=== PATIENT | female | born 1985 | race Caucasian/White ===

== ENCOUNTER → 2017-01-27 | Outpatient (CLI) | payer BC ==
[2017-01-27 08:39] LABS: CHLORIDE,CL 99 mmol/L (98-110); SODIUM,NA 134 mmol/L (136-146)
== END ==
LOC: MW.CHFP 08:01
PROVIDERS: ATTEND Nurse Practitioner Family
DX: Z00.00 Encounter for general adult medical examination without abnormal findings (principal); E11.9 Type 2 diabetes mellitus without complications; R63.1 Polydipsia
CPT/HCPCS: 36415; 80053; 80061; 81001; 82044; 83036; 84443

== ENCOUNTER → 2017-01-28 | Outpatient (CLI) | payer BC ==
[2017-02-13 17:04] LABS: HPV 16 Detected (NOTDET); HPV 18 Not Detected (NOTDET)
== END ==
LOC: MW.CHOBGYN 08:31
PROVIDERS: ATTEND Nurse Practitioner Women's Health
DX: O24.419 Gestational diabetes mellitus in pregnancy, unspecified control (principal); N89.8 Other specified noninflammatory disorders of vagina
CPT/HCPCS: 36415; 84681; 87480; 87510; 87624; 87660; G0145

== ENCOUNTER → 2017-02-04 | Outpatient (CLI) | payer BC ==
--- NOTE | 2017-02-05 14:18 | US ---
EXAM DATE: 02/04/17 PATIENT'S AGE: 31 Patient: AUBREE WILSON Facility: [facility] Site . Site : 1985 Study: US-Head [id number] 10:27:26 AM Ordering Physician: Kassandra Tirado Final Report: INDICATION: Family history of Graves disease. TECHNIQUE: Ultrasound thyroid with mendoza-scale and color Doppler analysis. COMPARISON: None FINDINGS: Right lobe: 4.2 x 1.7 x 1.0 cm. Left lobe: 3.2 x 1.6 x 1.6 cm. Nodules: None. Suspicious calcifications: None. Echotexture of the thyroid parenchyma is normal. Color Doppler analysis demonstrates normal vascularity. The isthmus is normal. No evidence of lymphadenopathy or parathyroid mass. IMPRESSION: Normal thyroid ultrasound. Dictated by Gerardo Hylton MD @ Feb 05 2017 10:41AM Signed by: Gerardo Hylton MD @02/05/2017 10:42:45 AM (Electronic Signature) Report Signed by Proxy and Original Signed Document filed in the Medical Record. [facility]
== END ==
LOC: MW.US 09:33
PROVIDERS: ATTEND Nurse Practitioner Family
DX: E07.89 Other specified disorders of thyroid (principal)
CPT/HCPCS: 76536-26; 76536-50

== ENCOUNTER 2022-05-29 13:26 | Emergency (ER) | payer BC ==
[2022-05-29] MEDS ORDERED: Sodium Chloride 0.9% 10 ML Syringe FLUSH PRN (13:29)
[2022-05-29] MEDS ORDERED: Sodium Chloride 0.9% 2.5 ML Syringe FLUSH PRN (13:29)
[2022-05-29] MEDS ORDERED: Sodium Chloride 0.9% 1,000 ML IV ONE (13:54)
[2022-05-29 14:23] LABS: CARBON DIOXIDE,CO2 27.7 mmol/L (21.0-32.0); POTASSIUM,K 4.3 mmol/L (3.5-5.1)
== END 2022-05-29 16:41 | disposition home or self-care (01) ==
LOC: MW.ED 13:26
DX: R10.13 Epigastric pain (principal); E78.00 Pure hypercholesterolemia, unspecified; I10 Essential (primary) hypertension; K21.9 Gastro-esophageal reflux disease without esophagitis; E10.9 Type 1 diabetes mellitus without complications; Z88.0 Allergy status to penicillin; Z88.2 Allergy status to sulfonamides; Z88.1 Allergy status to other antibiotic agents; Z79.82 Long term (current) use of aspirin; Z79.4 Long term (current) use of insulin; Z79.899 Other long term (current) drug therapy
CPT/HCPCS: 36415; 76830; 80053; 81001; 81025; 83690; 85025; 96360; 99284; J3490; J7030

== ENCOUNTER 2022-07-19 14:12 | Emergency (ER) | payer BC ==
[2022-07-19] MEDS ORDERED: Sodium Chloride 0.9% 1,000 ML IV ONE (15:25)
[2022-07-19] MEDS ORDERED: Morphine 4 MG/ML VIAL IVPUSH ONE (15:28)
[2022-07-19] MEDS ORDERED: Ondansetron 4 MG/2 ML SDV IVPUSH ONE ×2 (15:28→18:04)
[2022-07-19 16:06] LABS: BLOOD UREA NITROGEN,BUN 17 mg/dL (7.0-18.0); CARBON DIOXIDE,CO2 31.3 mmol/L (21.0-32.0); CHLORIDE,CL 104 mmol/L (98-107); GLUCOSE RANDOM 61 mg/dL (74-106); POTASSIUM,K 3.6 mmol/L (3.5-5.1); SODIUM,NA 142 mmol/L (136-145)
[2022-07-19 16:07] LABS: ESTIMATED GFR 75 mL/min (>60)
[2022-07-19] MEDS ORDERED: Alum Hydro/Mag Hydro/Simeth XS 15 ML, Metoclopramide 5 MG, Lidocaine 2% 5 ML PO ONE ×3 (16:27)
[2022-07-19] MEDS ORDERED: Famotidine 20 MG/2 ML SDV IVPUSH ONE (17:29)
[2022-07-19] MEDS ORDERED: HYDROmorphone 1 MG/ML Syringe IVPUSH ONE (17:29)
[2022-07-19] MEDS ORDERED: Iopamidol 755 MG/ML 500 ML Multipack Bottle IVPUSH STA (18:06)
== END 2022-07-19 19:54 | disposition home or self-care (01) ==
LOC: MW.ED 14:12
DX: K42.9 Umbilical hernia without obstruction or gangrene (principal); Z88.0 Allergy status to penicillin; Z88.2 Allergy status to sulfonamides; Z88.1 Allergy status to other antibiotic agents; Z79.899 Other long term (current) drug therapy; Z20.822 Contact with and (suspected) exposure to COVID-19
CPT/HCPCS: 36415; 74177; 80053; 81003; 81025; 82947; 83690; 85025; 87635; 96361; 96374; 96375; 96376; 99284; A9270; J1170; J2270; J2405; J3490; J7030; Q9967; U0002

== ENCOUNTER 2022-11-26 07:55 | Day surgery (SDC) | payer BC ==
[~2022-11-26 07:55] MED LIST: Acetaminophen 1,000 MG in Premix Bag 1 BAG IV SCH; Bupivacaine 0.5% 30 ML SDV ONE; Lactated Ringers 1,000 ML IV SCH; Pregabalin 75 MG Cap PO SCH; ceFAZolin 2 GM in Premix Bag 1 BAG IV SCH
[2022-11-26] MEDS ORDERED: fentaNYL 50 MCG/ML SDV IVPUSH PRN (08:54)
[2022-11-26] MEDS ORDERED: Metoclopramide 10 MG/2 ML SDV IVPUSH PRN (08:54)
[2022-11-26] MEDS ORDERED: Naloxone 0.4 MG/ML SDV IVPUSH PRN (08:54)
[2022-11-26] MEDS ORDERED: Albuterol 0.083% 2.5 MG/3 ML Neb Soln NEB PRN (08:54)
[2022-11-26] MEDS ORDERED: Ondansetron 4 MG/2 ML SDV IVPUSH PRN (08:54)
[2022-11-26] MEDS ORDERED: Morphine 2 MG/ML SYRINGE IVPUSH PRN (08:54)
[2022-11-26] MEDS ORDERED: HYDROmorphone 1 MG/ML Syringe IVPUSH PRN (08:54)
[2022-11-26] MEDS ORDERED: Ropivacaine 0.5% 5 MG/ML 30 ML SDV ONE (08:57)
[2022-11-26] MEDS ORDERED: Propofol 200 MG/20 ML SDV ONE (09:00)
[2022-11-26] MEDS ORDERED: Midazolam 1 MG/ML 2 ML SDV ONE (09:00)
[2022-11-26] MEDS ORDERED: Lidocaine 2% 5 ML SDV ONE (09:00)
[2022-11-26] MEDS ORDERED: Dexamethasone 4 MG/ML 5 ML MDV ONE (09:00)
[2022-11-26] MEDS ORDERED: fentaNYL 100 MCG/2 ML SDV ONE (09:00)
[2022-11-26] MEDS ORDERED: Ondansetron 4 MG/2 ML SDV ONE (09:00)
[2022-11-26] MEDS ORDERED: ceFAZolin 2 GM Vial ONE (09:16)
[2022-11-26] MEDS ORDERED: Water For Injection, Sterile 20 ML ONE (09:16)
[2022-11-26] MEDS ORDERED: Magnesium Sulfate (4.06 MEQ/ML) 5 GM/10 ML SDV ONE (10:06)
[2022-11-26] MEDS ORDERED: Ketorolac 30 MG/ML SDV ONE (10:08)
[2022-11-26] MEDS ORDERED: HYDROmorphone 2 MG/ML Syringe ONE (10:52)
[2022-11-26] MEDS ORDERED: Ondansetron 4 MG Tab.DIS ONE (14:42)
[2022-11-26] MEDS ORDERED: Famotidine 20 MG/2 ML SDV ONE (14:56)
[2022-11-26] MEDS ORDERED: Famotidine 20 MG/2 ML SDV IVPUSH ONE (15:04)
== END 2022-11-26 15:30 | disposition home or self-care (01) ==
LOC: MW.SDS 07:55
PROVIDERS: ATTEND Surgery
DX: K42.0 Umbilical hernia with obstruction, without gangrene (principal); I10 Essential (primary) hypertension; F31.81 Bipolar II disorder; E10.9 Type 1 diabetes mellitus without complications; K21.9 Gastro-esophageal reflux disease without esophagitis; E78.00 Pure hypercholesterolemia, unspecified; J45.909 Unspecified asthma, uncomplicated; F41.9 Anxiety disorder, unspecified; G43.909 Migraine, unspecified, not intractable, without status migrainosus; Z88.0 Allergy status to penicillin; Z88.2 Allergy status to sulfonamides; Z79.899 Other long term (current) drug therapy; Z98.890 Other specified postprocedural states; Z79.4 Long term (current) use of insulin
CPT/HCPCS: 49587; 81025; A9270; J0690; J1100; J1170; J1885; J2250; J2405; J2704; J2765; J2795; J3010; J3475; J3490; J7120; 00750; 64488

== ENCOUNTER 2024-01-07 11:45 | Emergency (ER) | payer BC ==
[2024-01-07 12:44] LABS: BASOPHILS ABSOLUTE AUTO 0.05 K/uL (0.00-0.20); BASOPHILS PERCENT AUTO 0.8 % (0.0-1.0); EOSINOPHILS ABSOLUTE AUTO 0.27 K/uL (0.00-0.45); EOSINOPHILS PERCENT AUTO 4.5 % (0.0-6.0); HEMATOCRIT 40.7 % (37.0-47.0); HEMOGLOBIN 13.8 g/dL (12.0-16.0); IMMATURE GRAN ABSOLUTE AUTO 0.01 K/uL (0.00-0.05); IMMATURE GRAN PERCENT AUTO 0.2 % (0.0-0.4); LYMPHOCYTES ABSOLUTE AUTO 1.79 K/uL (1.00-4.80); LYMPHOCYTES PERCENT AUTO 29.5 % (24.0-44.0); MEAN CORPUSCULAR HEMOGLOBIN 28.3 pg (28.0-32.0); MEAN CORPUSCULAR HGB CONC 33.9 g/dL (32.0-36.0); MEAN CORPUSCULAR VOLUME 83.6 fL (83.0-99.0); MEAN PLATELET VOLUME 8.5 fL (9.4-12.3); MONOCYTES ABSOLUTE AUTO 0.42 K/uL (0.00-0.80); MONOCYTES PERCENT AUTO 6.9 % (0.0-8.0); NEUTROPHILS ABSOLUTE AUTO 3.52 K/uL (1.80-7.70); NEUTROPHILS PERCENT AUTO 58.1 % (41.0-71.0); PLATELET COUNT,PLT 291 K/uL (150-400); RED BLOOD CELL COUNT 4.87 M/uL (4.10-5.30); WHITE BLOOD CELL COUNT,WBC 6.06 K/uL (3.9-11.3)
[2024-01-07 13:19] LABS: A/G RATIO 1.1 (0.9-1.6); ALBUMIN 3.9 g/dL (3.4-5.0); BILIRUBIN TOTAL 0.6 mg/dL (0.2-1.0); CALCIUM 9.1 mg/dL (8.5-10.1); EST CRCL DRUG DOSING (CG) 72.81 mL/min; POTASSIUM,K 4.2 mmol/L (3.5-5.1); PROTEIN TOTAL,TP 7.4 g/dL (6.4-8.2)
[2024-01-07 13:21] LABS: MAGNESIUM 1.9 mg/dL (1.8-2.4)
[2024-01-07 13:57] LABS: CORONAVIRUS COVID-19 NAA NEGATIVE (NEGATIVE); INFLUENZA A NAA NEGATIVE (NEGATIVE); INFLUENZA B NAA NEGATIVE (NEGATIVE); RESPIRATORY SYNCYTIAL VIR NAA NEGATIVE (NEGATIVE)
[2024-01-07 14:17] LABS: INR 0.96 (0.86-1.11)
== END 2024-01-07 16:15 | disposition home or self-care (01) ==
LOC: MW.ED 11:45
DX: R51.9 Headache, unspecified (principal); R00.2 Palpitations; I10 Essential (primary) hypertension; K21.9 Gastro-esophageal reflux disease without esophagitis; E10.9 Type 1 diabetes mellitus without complications; Z79.899 Other long term (current) drug therapy; Z79.4 Long term (current) use of insulin; Z88.0 Allergy status to penicillin; Z88.2 Allergy status to sulfonamides; Z91.018 Allergy to other foods
CPT/HCPCS: 0241U; 36415; 70450; 80053; 83690; 83735; 84484; 84703; 85025; 85379; 85610; 93005; 99285; 93010; 99282

== ENCOUNTER 2025-03-29 12:02 | Emergency (ER) | payer BC ==
[2025-03-29 12:15] LABS: BASOPHILS ABSOLUTE AUTO 0.05 K/uL (0.00-0.20); BASOPHILS PERCENT AUTO 0.5 % (0.0-1.0); EOSINOPHILS ABSOLUTE AUTO 0.35 K/uL (0.00-0.45); EOSINOPHILS PERCENT AUTO 3.6 % (0.0-6.0); HEMATOCRIT 39.4 % (37.0-47.0); HEMOGLOBIN 13.6 g/dL (12.0-16.0); IMMATURE GRAN ABSOLUTE AUTO 0.03 K/uL (0.00-0.05); IMMATURE GRAN PERCENT AUTO 0.3 % (0.0-0.4); LYMPHOCYTES ABSOLUTE AUTO 3.32 K/uL (1.00-4.80); LYMPHOCYTES PERCENT AUTO 33.9 % (24.0-44.0); MEAN CORPUSCULAR HEMOGLOBIN 29.1 pg (28.0-32.0); MEAN CORPUSCULAR HGB CONC 34.5 g/dL (32.0-36.0); MEAN CORPUSCULAR VOLUME 84.2 fL (83.0-99.0); MEAN PLATELET VOLUME 8.5 fL (9.4-12.3); MONOCYTES PERCENT AUTO 6.1 % (0.0-8.0); NEUTROPHILS ABSOLUTE AUTO 5.43 K/uL (1.80-7.70); NEUTROPHILS PERCENT AUTO 55.6 % (41.0-71.0); PLATELET COUNT,PLT 438 K/uL (150-400); RED BLOOD CELL COUNT 4.68 M/uL (4.10-5.30); WHITE BLOOD CELL COUNT,WBC 9.78 K/uL (3.9-11.3)
[2025-03-29 12:46] LABS: A/G RATIO 1.1 (0.9-1.6); ALANINE AMINOTRANSFERASE,ALT 22 IU/L (14-63); ALBUMIN 3.7 g/dL (3.4-5.0); ALKALINE PHOSPHATASE 89 U/L (46-116); ASPARTATE AMNIOTRANSFERASE,AST 13 IU/L (15-37); BILIRUBIN TOTAL 0.3 mg/dL (0.2-1.0); BLOOD UREA NITROGEN,BUN 10 mg/dL (7.0-18.0); CALCIUM 8.9 mg/dL (8.5-10.1); CARBON DIOXIDE,CO2 23.7 mmol/L (21.0-32.0); CHLORIDE,CL 102 mmol/L (98-107); CREATININE 1.1 mg/dL (0.6-1.0); EST CRCL DRUG DOSING (CG) 73.18 mL/min; GLUCOSE RANDOM 109 mg/dL (74-106); POTASSIUM,K 3.7 mmol/L (3.5-5.1); PRO B-TYPE NATRIUR PEPT,BNPPRO 18 pg/mL (0-125); PROTEIN TOTAL,TP 7.1 g/dL (6.4-8.2); SODIUM,NA 138 mmol/L (136-145); TSH ULTRASENSITIVE 1.14 uIU/mL (0.36-3.74)
[2025-03-29 12:47] LABS: ESTIMATED GFR 66 mL/min (>60)
[2025-03-29] MEDS: Sodium Chloride 0.9% 1,000 ML IV ONE (13:03)
[2025-03-29] MEDS: LORazepam 2 MG/ML SDV IVPUSH ONE (13:03)
[2025-03-29 13:49] LABS: APPEARANCE,URINE CLEAR; BILIRUBIN,URINE NEGATIVE (NEGATIVE); COLOR,URINE YELLOW; GLUCOSE,URINE 250 mg/dL (NEGATIVE); KETONES,URINE NEGATIVE (NEGATIVE); LEUKOCYTE ESTERASE,URINE TRACE (NEGATIVE); NITRITE,URINE NEGATIVE (NEGATIVE); OCCULT BLOOD,URINE LARGE (NEGATIVE); PROTEIN,URINE NEGATIVE (NEGATIVE); UROBILINOGEN,URINE 0.2 EU/dL (<2.0)
[2025-03-29 13:58] LABS: AMPHETAMINES SCREEN, URINE NEGATIVE (CUTOFF=500); BARBITURATE SCREEN,URINE NEGATIVE (CUTOFF=200); BENZODIAZEPINES SCREEN,URINE NEGATIVE (CUTOFF=150); BUPRENORPHINE SCREEN,URINE NEGATIVE (CUTOFF=10); METHADONE SCREEN, URINE NEGATIVE (CUTOFF=200); METHAMPHETAMINES SCREEN, URINE NEGATIVE (CUTOFF=500); OXYCODONE SCREEN,URINE NEGATIVE (CUT0FF=100); PCP SCREEN,URINE NEGATIVE (CUTOFF=25); THC SCREEN,URINE 20 NG/ML NEGATIVE (CUTOFF=50)
[2025-03-29 14:05] LABS: BACTERIA,URINE FEW (NEGATIVE); EPITHELIAL CELLS,URINE FEW (NONE-FEW); RBC,URINE 0-2 (0-2/HPF)
== END 2025-03-29 14:38 | disposition home or self-care (01) ==
LOC: MW.ED 12:02
DX: R06.4 Hyperventilation (principal); R00.0 Tachycardia, unspecified; I10 Essential (primary) hypertension; E10.9 Type 1 diabetes mellitus without complications; K21.9 Gastro-esophageal reflux disease without esophagitis; Z75.3 Unavailability and inaccessibility of health-care facilities; Z88.8 Allergy status to other drugs, medicaments and biological substances; Z88.0 Allergy status to penicillin; Z88.2 Allergy status to sulfonamides; Z91.010 Allergy to peanuts; Z91.018 Allergy to other foods; Z79.899 Other long term (current) drug therapy; Z79.4 Long term (current) use of insulin; Z79.51 Long term (current) use of inhaled steroids
CPT/HCPCS: 36415; 70450; 71045; 80053; 80305; 81001; 83880; 84443; 84484; 85025; 85379; 87086; 93005; 96361; 96374; 99285; J2060; J7030; 93010; 99284